=== PATIENT | male | born 1935 | race Caucasian/White ===

== ENCOUNTER 2016-10-21 15:51 | Emergency (ER) | payer MEDICARE, OTHER ==
--- NOTE | 2016-10-21 17:14 | Emergency Department Record ---
History of Present Illness - General Chief Complaint: Numbness Stated Complaint: FACIAL AND HAND NUMBNESS/RESOLVED Time Seen by Provider: 10/21/16 16:08 Source: Patient Mode of Arrival: Ambulatory Limitations: No limitations - History of Present Illness Initial Comments: pt had 20-30min of r face and hand, arm numbness which resolved . Onset/Timin -: Hour(s) Location: Right arm, Right face History of same: No Place: Home Severity: Mild Improves With: None Worsens With: None Context: Sudden onset Associated Symptoms: Other Treatments Prior to Arrival: None - Symptoms of Stroke Symptoms of stroke: Numbness - Related Data Home Medications: Home Medications Medication Instructions Recorded Confirmed Last Taken Aspirin [Adult Low Dose Aspirin EC] 81 mg PO DAILY 01/08/16 10/21/16 Unknown B Complex with Vitamin C 1 each PO DAILY 01/08/16 10/21/16 Unknown [B-Complex with C] Cholecalciferol (Vitamin D3) 5,000 unit PO DAILY 01/08/16 10/21/16 Unknown [Vitamin D3] Glucosamine/D3/Boswellia Keila 1 each PO DAILY 01/08/16 10/21/16 Unknown [Glucosamine Daily Complex Tab] Metoprolol Succinate [Toprol Xl] 12.5 mg PO DAILY 01/08/16 10/21/16 Unknown Niacin 500 mg PO DAILY 01/08/16 10/21/16 Unknown Valerian Root 100 mg PO QID 01/08/16 10/21/16 Unknown Saw [place] 450 mg PO DAILY 10/21/16 10/21/16 Unknown Allergies/Adverse Reactions: Allergies Allergy/AdvReac Type Severity Reaction Status Date / Time No Known Drug Allergies Allergy Verified 10/03/15 13:44 Travel Screening - Travel/Exposure Within Last 30 Days Have you traveled within the last 30 days?: No Review of Systems Reviewed: No additional complaints except as noted below Constitutional: Reports: As per HPI. Denies: Chills, Fever, Malaise, Night sweats, Weakness, Weight change Eyes: Reports: As per HPI. Denies: Eye discharge, Eye pain, Photophobia, Vision change ENT: Reports: As per HPI. Denies: Congestion, Dental pain, Ear pain, Epistaxis , Hearing loss, Throat pain Respiratory: Reports: As per HPI. Denies: Cough, Dyspnea, Hemoptysis, Stridor, Wheezes Cardiovascular: Reports: As per HPI. Denies: Arrhythmia, Chest pain, Dyspnea on exertion, Edema, Murmurs, Orthopnea, Palpitations, Paroxysmal nocturnal dyspnea, Rheumatic Fever, Syncope Endocrine: Reports: As per HPI. Denies: Fatigue, Heat or cold intolerance, Polydipsia, Polyuria Gastrointestinal: Reports: As per HPI. Denies: Abdominal pain, Constipation, Diarrhea, Hematemesis, Hematochezia, Melena, Nausea, Vomiting Genitourinary: Reports: As per HPI. Denies: Dysuria, Frequency, Hematuria, Incontinence, Retention, Testicular pain, Testicular mass, Urgency Musculoskeletal: Reports: As per HPI. Denies: Arthralgia, Back pain, Gout, Joint swelling, Myalgia, Neck pain Skin: Reports: As per HPI. Denies: Bruising, Change in color, Change in hair/ nails, Lesions, Pruritus, Rash Neurological: Reports: As per HPI. Denies: Abnormal gait, Confusion, Headache, Numbness, Paresthesias, Seizure, Tingling, Tremors, Vertigo, Weakness Psychiatric: Reports: As per HPI. Denies: Anxiety, Auditory hallucinations, Depression, Homicidal thoughts, Suicidal thoughts, Visual hallucinations Hematological/Lymphatic: Reports: As per HPI. Denies: Anemia, Blood Clots, Easy bleeding, Easy bruising, Swollen glands Past Medical History - SOCIAL HISTORY Smoking Status: Former smoker Alcohol Use: None Drug Use: None - RESPIRATORY Hx Respiratory Disorders: Yes Hx COPD: Yes - CARDIOVASCULAR Hx Cardio Disorders: No - NEURO Hx Neuro Disorders: No - GI Hx GI Disorders: Yes Hx Ulcer: Yes - Hx Genitourinary Disorders: No - ENDOCRINE Hx Endocrine Disorders: No - MUSCULOSKELETAL Hx Musculoskeletal Disorders: No - PSYCH Hx Psych Problems: No - HEMATOLOGY/ONCOLOGY Hx Hematology/Oncology Disorders: No Family Medical History Any Significant Family History?: Yes Hx Heart Disease: Father, Children, Brother/Sister Physical Exam - General General Appearance: Alert, Oriented x3, Cooperative, Mild distress - Head Head exam: Normal inspection - Eye Eye exam: Normal appearance, PERRL, EOMI Pupils: Normal accommodation - ENT ENT exam: Normal exam, Mucous membranes moist, Normal external ear exam, Normal orophraynx Ear exam: Normal external inspection. negative: External canal tenderness Nasal Exam: Normal inspection. negative: Discharge, Sinus tenderness Mouth exam: Normal external inspection, Tongue normal Teeth exam: Normal inspection. negative: Dental caries Throat exam: Normal inspection. negative: Tonsillar erythema, Tonsillar exudate - Neck Neck exam: Normal inspection, Full ROM. negative: Tenderness - Respiratory Respiratory exam: Normal lung sounds bilaterally. negative: Respiratory distress - Cardiovascular Cardiovascular Exam: Regular rate, Normal rhythm, Normal heart sounds - GI/Abdominal GI/Abdominal exam: Soft, Normal bowel sounds. negative: Tenderness - Rectal Rectal exam: Deferred - exam: Deferred - Extremities Extremities exam: Normal inspection, Full ROM, Normal capillary refill. negative: Tenderness - Back Back exam: Reports: Normal inspection, Full ROM. Denies: Muscle spasm, Rash noted, Tenderness - Neurological Neurological exam: Alert, CN II-XII intact, Normal gait, Oriented X3 - Psychiatric Psychiatric exam: Normal affect, Normal mood - Skin Skin exam: Dry, Intact, Normal color, Warm Course Vital Signs 10/21/16 15:58 Temperature 97.7 F Pulse Rate 64 Respiratory 20 Rate Blood Pressure 186/74 Pulse Ox 96 Medical Decision Making - Lab Data Result diagrams: 10/21/16 17:20 10/21/16 17:20 Disposition Disposition: Transfer Clinical Impression: TIA (transient ischemic attack) Qualifiers: Transient cerebral ischemia type: unspecified Qualified Code(s): G45.9 - Transient cerebral ischemic attack, unspecified Disposition: Acute Care Hospital Transfer Transfer To: [facility] Reason For Transfer: tia Accepting Physician: socrates Rodriguez Discussed w/Accepting Physician: 18:39 Forms: Patient Portal Access
[2016-10-21 17:30] LABS: BASO % 0.3 % (0-6); EOS % 3.4 % (0-6); GRAN % 73.9 % (47-80); HEMATOCRIT 47.4 % (42.0-52.0); HEMOGLOBIN 15.9 gm/dl (14.0-18.0); MEAN CELL VOLUME 88.1 fl (81-97); MEAN CORPUSCULAR HEMOGLOBIN 29.6 pg (27-33); MEAN CORPUSCULAR HGB CONC 33.5 g/dl (32-36); MEAN PLATELET VOLUME 9.4 fl (7.4-10.4); MONO % 9.4 % (0-9); PLATELET COUNT 265 K/uL (130-400); RED BLOOD COUNT 5.38 M/uL (4.40-5.70); RED CELL DISTRIBUTION WIDTH 13.8 % (11.5-14.5)
[2016-10-21 17:40] LABS: ANION GAP 7.5 (7-16); BLOOD UREA NITROGEN 20 mg/dL (9-20); CARBON DIOXIDE 27.5 mmol/L (22-30); CREATININE 1.1 mg/dL (0.66-1.25); EST GLOMERULAR FILTRATION RATE > 60 ml/min; GLUCOSE,RANDOM 107 mg/dL (70-110)
[2016-10-21] MEDS ORDERED: ASPIRIN 325 MG TABLET PO ONE (18:36)
[2016-10-21] MEDS ORDERED: 0.9 % SODIUM CHLORIDE 1000ML 1,000 ML IV PRN (18:39)
[2016-10-21] MEDS ORDERED: ASPIRIN 81 MG CHEWABLE TABLET PO ONE (18:40)
== END 2016-10-21 19:06 | disposition short-term general hospital (02) ==
LOC: ER 15:51
DX: G45.9 Transient cerebral ischemic attack, unspecified (principal); J44.9 Chronic obstructive pulmonary disease, unspecified; Z87.891 Personal history of nicotine dependence
CPT/HCPCS: 70450; 80048; 85025; 93005; 93010; 99285

== ENCOUNTER 2016-10-28 14:14 | Emergency (ER) | payer MEDICARE, OTHER ==
--- NOTE | 2016-10-28 15:00 | Emergency Department Record ---
History of Present Illness - General Chief Complaint: Hypertension Stated Complaint: ELEVATED BP/ HX STROKE Time Seen by Provider: 10/28/16 14:51 Source: Patient Mode of Arrival: Ambulatory Limitations: No limitations - History of Present Illness Initial Comments: 81 yo male presents to ED with a CC of elevated blood pressure this afternoon at home. Patient denies any symptoms and reports that he feels at his baseline. Patient and his were concerned as the patient was diagnosed with a CVA 1 week ago and found to have significant carotid stenosis that will require endarectomy in the next 1-2 weeks. Patient chest pain, dizziness, headache, or focal weakness symptoms. Patient took metoprolol prior to arrival. Patient is also taking Plavix and aspirin at home as well. MD Complaint: Other Onset/Timin -: Days(s) Timing: Gradual onset Description: Other History of Same: Yes History of Trauma: No Severity: Mild Improves With: Nothing, Medication Worsens With: Nothing - Loren Coma Scale Eye Response: (4) Open spontaneously Motor Response: (6) Obeys commands Verbal Response: (5) Oriented [place] Total: 15 - Symptoms of Stroke Baseline State: Baseline State - Related Data Home Medications Medication Instructions Recorded Confirmed Last Taken Aspirin [Adult Low Dose Aspirin EC] 81 mg PO DAILY 01/08/16 10/28/16 1 Day Ago ~10/27/16 Metoprolol Succinate [Toprol Xl] 25 mg PO DAILY 01/08/16 10/28/16 1 Day Ago ~10/27/16 Allergies Allergy/AdvReac Type Severity Reaction Status Date / Time No Known Drug Allergies Allergy Verified 10/28/16 14:47 Travel Screening - Travel/Exposure Within Last 30 Days Have you traveled within the last 30 days?: No - Travel/Exposure Within Last Year Have you traveled outside the [place] in the last year?: No - Additonal Travel Details Have you been exposed to anyone with a communicable illness?: No - Travel Symptoms Symptom Screening: None Review of Systems Constitutional: Denies: Chills, Fever, Malaise, Night sweats Eyes: Denies: Eye discharge, Eye pain ENT: Denies: Congestion, Ear pain, Epistaxis Respiratory: Denies: Cough, Dyspnea Cardiovascular: Denies: Chest pain, Dyspnea on exertion Endocrine: Denies: Fatigue, Heat or cold intolerance Gastrointestinal: Denies: Abdominal pain, Nausea, Vomiting Genitourinary: Denies: Incontinence, Retention Musculoskeletal: Denies: Arthralgia, Back pain, Gout, Joint swelling Skin: Denies: Bruising, Change in color Neurological: Denies: Abnormal gait, Confusion, Headache, Seizure Psychiatric: Denies: Anxiety Hematological/Lymphatic: Denies: Anemia, Blood Clots Past Medical History - SOCIAL HISTORY Smoking Status: Former smoker Alcohol Use: None Drug Use: None - RESPIRATORY Hx Respiratory Disorders: Yes Hx COPD: Yes - CARDIOVASCULAR Hx Cardio Disorders: No - NEURO Hx CVA: Yes Hx TIA: Yes - GI Hx GI Disorders: Yes Hx Ulcer: Yes - Hx Genitourinary Disorders: No - ENDOCRINE Hx Endocrine Disorders: No - MUSCULOSKELETAL Hx Musculoskeletal Disorders: No - PSYCH Hx Psych Problems: No - HEMATOLOGY/ONCOLOGY Hx Hematology/Oncology Disorders: No Family Medical History Any Significant Family History?: Yes Hx Heart Disease: Father, Children, Brother/Sister Physical Exam - General General Appearance: Alert, Oriented x3, Cooperative, No acute distress Limitations: No limitations - Head Head exam: Atraumatic, Normocephalic, Normal inspection Head exam detail: negative: Abrasion, Contusion, Mcqueen's sign, General tenderness, Hematoma, Laceration - Eye Eye exam: Normal appearance. negative: Conjunctival injection, Periorbital swelling, Periorbital tenderness, Scleral icterus - ENT Ear exam: negative: Auricular hematoma, Auricular trauma Nasal Exam: negative: Active bleeding, Discharge, Dried blood, Foreign body Mouth exam: negative: Drooling, Laceration, Muffled voice, Tongue elevation - Neck Neck exam: Normal inspection. negative: Meningismus, Tenderness - Respiratory Respiratory exam: Normal lung sounds bilaterally. negative: Rales, Respiratory distress, Rhonchi, Stridor, Wheezes - Cardiovascular Cardiovascular Exam: Regular rate, Normal rhythm, Normal heart sounds - GI/Abdominal GI/Abdominal exam: Soft. negative: Rebound, Rigid, Tenderness - Rectal Rectal exam: Deferred - exam: Deferred - Extremities Extremities exam: Normal inspection. negative: Calf tenderness, Pedal edema, Tenderness - Back Back exam: Denies: CVA tenderness (R), CVA tenderness (L) - Neurological Neurological exam: Alert, Normal gait, Oriented X3 - Psychiatric Psychiatric exam: Normal affect, Normal mood - Skin Skin exam: Normal color. negative: Abrasion Type of lesion: negative: abrasion Course Vital Signs 10/28/16 14:35 Temperature 97.4 F L Pulse Rate 54 L Respiratory 24 Rate Blood Pressure 169/95 Pulse Ox 98 - Reevaluation(s) Reevaluation #1: 10/28/16 15:05 Patient seen and examined, initial BP 169/95 without symptoms, no emergent need for BP lowering as the patient is asymptomatic. Will monitor in ED and check the patient's renal function. Reevaluation #2: 10/28/16 16:07 Laboratory studies reviewed and are grossly unremarkable for an acute process. repeat blood pressure 145/87, patient remains asymptomatic. Patient and his were updated on all results, and appears stable for discharge at this time. Medical Decision Making - Lab Data Result diagrams: 10/28/16 15:10 10/28/16 15:10 Disposition Disposition: Discharge Clinical Impression: Elevated blood pressure reading Disposition: Home, Self-Care Condition: (2) Stable Instructions: Hypertension (ED) Additional Instructions: Return to ED if your symptoms worsen or if you have any concerns. Follow-up with your family doctor in 3-5 days as directed. Forms: Patient Portal Access Time of Disposition: 16:08
[2016-10-28 15:24] LABS: BASO % 0.4 % (0-6); GRAN % 74.7 % (47-80); HEMATOCRIT 47.7 % (42.0-52.0); LYMPH % 10.2 % (16-45); MEAN CELL VOLUME 88.7 fl (81-97); MEAN CORPUSCULAR HEMOGLOBIN 29.7 pg (27-33); MEAN CORPUSCULAR HGB CONC 33.5 g/dl (32-36); MEAN PLATELET VOLUME 9.6 fl (7.4-10.4); MONO % 8.7 % (0-9); PLATELET COUNT 272 K/uL (130-400); RED BLOOD COUNT 5.38 M/uL (4.40-5.70); RED CELL DISTRIBUTION WIDTH 13.9 % (11.5-14.5); WHITE BLOOD COUNT W/O DIFF 12.1 K/uL (4.2-12.2)
[2016-10-28 15:37] LABS: ALB/GLOB RATIO 1.4 (1.1-1.8); ALBUMIN 4.4 gm/dL (3.5-5.0); ALKALINE PHOSPHATASE 100 U/L (38-126); ALT/SGPT 40 U/L (21-72); ANION GAP 12.6 (7-16); AST/SGOT 27 U/L (17-59); BILIRUBIN,TOTAL 0.56 mg/dL (0.2-1.3); BLOOD UREA NITROGEN 20 mg/dL (9-20); CARBON DIOXIDE 21.4 mmol/L (22-30); EST GLOMERULAR FILTRATION RATE > 60 ml/min; GLUCOSE,RANDOM 101 mg/dL (70-110); TOTAL PROTEIN 7.5 gm/dL (6.3-8.2)
== END 2016-10-28 16:23 | disposition home or self-care (01) ==
LOC: ER 14:14
DX: I10 Essential (primary) hypertension (principal); Z87.891 Personal history of nicotine dependence; Z86.73 Personal history of transient ischemic attack (TIA), and cerebral infarction without residual deficits; J44.9 Chronic obstructive pulmonary disease, unspecified
CPT/HCPCS: 80053; 85025; 99283

== ENCOUNTER 2016-11-12 09:56 | Emergency (ER) | payer MEDICARE, OTHER ==
--- NOTE | 2016-11-12 10:17 | Emergency Department Record ---
History of Present Illness - General Chief Complaint: Slurred speech Stated Complaint: SLURED SPEECH Time Seen by Provider: 11/12/16 10:10 Source: Patient, RN notes reviewed Mode of Arrival: Ambulatory - History of Present Illness Initial Comments: one hour prior to admission he had speech problems where he could not find the right word and said he has had that problem before. Recent CVA about 2 weeks ago and he was scheduled for an endarectomy yesterday but was delayed for one week. patient has carotid stenosis left side per . Onset/Timin -: Minutes(s) Location: Other History of same: Yes Place: Home Severity: Mild Associated Symptoms: Denies other symptoms - Loren Coma Scale Eye Response: (4) Open spontaneously Motor Response: (6) Obeys commands Verbal Response: (5) Oriented [place] Total: 15 - Symptoms of Stroke Onset of Symptoms Date: 11/12/16 Onset of Symptoms Time: 09:00 Symptom Onset Unknown: Yes Symptoms of stroke: Incoherent Speech - Related Data Home Medications: Home Medications Medication Instructions Recorded Confirmed Last Taken Aspirin [Adult Low Dose Aspirin EC] 81 mg PO DAILY 01/08/16 11/12/16 11/11/16 09 :00 Metoprolol Succinate [Toprol Xl] 25 mg PO DAILY 01/08/16 11/12/16 11/11/16 09:00 Atorvastatin Calcium 40 mg PO 11/12/16 11/11/16 21:00 Allergies/Adverse Reactions: Allergies Allergy/AdvReac Type Severity Reaction Status Date / Time No Known Drug Allergies Allergy Verified 11/12/16 09:58 Travel Screening - Travel/Exposure Within Last 30 Days Have you traveled within the last 30 days?: No - Travel/Exposure Within Last Year Have you traveled outside the [place] in the last year?: No - Additonal Travel Details Have you been exposed to anyone with a communicable illness?: No - Travel Symptoms Symptom Screening: None Review of Systems Reviewed: No additional complaints except as noted below Constitutional: Reports: As per HPI. Denies: Chills, Fever, Malaise, Night sweats, Weakness, Weight change Eyes: Reports: As per HPI. Denies: Eye discharge, Eye pain, Photophobia, Vision change ENT: Reports: As per HPI. Denies: Congestion, Dental pain, Ear pain, Epistaxis , Hearing loss, Throat pain Respiratory: Reports: As per HPI. Denies: Cough, Dyspnea, Hemoptysis, Stridor, Wheezes Cardiovascular: Reports: As per HPI. Denies: Arrhythmia, Chest pain, Dyspnea on exertion, Edema, Murmurs, Orthopnea, Palpitations, Paroxysmal nocturnal dyspnea, Rheumatic Fever, Syncope Endocrine: Reports: As per HPI. Denies: Fatigue, Heat or cold intolerance, Polydipsia, Polyuria Gastrointestinal: Reports: As per HPI. Denies: Abdominal pain, Constipation, Diarrhea, Hematemesis, Hematochezia, Melena, Nausea, Vomiting Genitourinary: Reports: As per HPI. Denies: Dysuria, Frequency, Hematuria, Incontinence, Retention, Testicular pain, Testicular mass, Urgency Musculoskeletal: Reports: As per HPI. Denies: Arthralgia, Back pain, Gout, Joint swelling, Myalgia, Neck pain Skin: Reports: As per HPI. Denies: Bruising, Change in color, Change in hair/ nails, Lesions, Pruritus, Rash Neurological: Reports: As per HPI. Denies: Abnormal gait, Confusion, Headache, Numbness, Paresthesias, Seizure, Tingling, Tremors, Vertigo, Weakness Psychiatric: Reports: As per HPI. Denies: Anxiety, Auditory hallucinations, Depression, Homicidal thoughts, Suicidal thoughts, Visual hallucinations Hematological/Lymphatic: Reports: As per HPI. Denies: Anemia, Blood Clots, Easy bleeding, Easy bruising, Swollen glands Past Medical History - SOCIAL HISTORY Smoking Status: Former smoker Alcohol Use: None Drug Use: None - RESPIRATORY Hx Respiratory Disorders: Yes Hx COPD: Yes - CARDIOVASCULAR Hx Cardio Disorders: No - NEURO Hx Neuro Disorders: No Hx CVA: Yes Hx TIA: Yes - GI Hx GI Disorders: Yes Hx Ulcer: Yes - Hx Genitourinary Disorders: No - ENDOCRINE Hx Endocrine Disorders: No - MUSCULOSKELETAL Hx Musculoskeletal Disorders: No - PSYCH Hx Psych Problems: No - HEMATOLOGY/ONCOLOGY Hx Hematology/Oncology Disorders: No Family Medical History Any Significant Family History?: Yes Hx Heart Disease: Father, Children, Brother/Sister Hx Stroke: Father, Brother/Sister Physical Exam - General General Appearance: Alert, Oriented x3, Cooperative, Mild distress - Head Head exam: Normal inspection - Eye Eye exam: Normal appearance, PERRL Pupils: Normal accommodation - ENT ENT exam: Normal exam, Mucous membranes moist, Normal external ear exam, Normal orophraynx, TM's normal bilaterally Ear exam: Normal external inspection. negative: External canal tenderness Nasal Exam: Normal inspection. negative: Discharge, Sinus tenderness Mouth exam: Normal external inspection, Tongue normal Teeth exam: Normal inspection. negative: Dental caries Throat exam: Normal inspection. negative: Tonsillar erythema, Tonsillar exudate - Neck Neck exam: Normal inspection, Full ROM. negative: Tenderness - Respiratory Respiratory exam: Normal lung sounds bilaterally. negative: Respiratory distress - Cardiovascular Cardiovascular Exam: Regular rate, Normal rhythm, Normal heart sounds - GI/Abdominal GI/Abdominal exam: Soft, Normal bowel sounds. negative: Tenderness - Rectal Rectal exam: Deferred - exam: Deferred - Extremities Extremities exam: Normal inspection, Full ROM, Normal capillary refill. negative: Tenderness - Back Back exam: Reports: Normal inspection, Full ROM. Denies: Muscle spasm, Rash noted, Tenderness - Neurological Neurological exam: Alert, Normal gait, Oriented X3, Reflexes normal - Psychiatric Psychiatric exam: Normal affect, Normal mood - Skin Skin exam: Dry, Intact, Normal color, Warm Course Vital Signs 11/12/16 10:04 Temperature 97.4 F L Pulse Rate 63 Respiratory 20 Rate Blood Pressure 169/96 Pulse Ox 98 currently speaking appropriately and moving arms and legs well. Medical Decision Making - Data Complexity MDM Data: Labs Ordered and/or Reviewed, X-Ray Ordered and/or Reviewed (CT head unchanged from september) - Lab Data Result diagrams: 11/12/16 10:05 11/12/16 10:05 Disposition Clinical Impression: TIA (transient ischemic attack) Qualifiers: Transient cerebral ischemia type: unspecified Qualified Code(s): G45.9 - Transient cerebral ischemic attack, unspecified Disposition: Home, Self-Care Condition: (1) Good Instructions: Transient Ischemic Attack, Employee Relations Director (GEN) Additional Instructions: full strenght aspirin a day follow up with Dr. Colindres tomorrow at 11pm in the office Forms: Patient Portal Access Time of Disposition: 11:35
[2016-11-12] MEDS ORDERED: ASPIRIN 81 MG CHEWABLE TABLET PO ONE (10:25)
[2016-11-12 10:30] LABS: BASO % 0.5 % (0-6); EOS % 8.8 % (0-6); GRAN % 64.1 % (47-80); HEMATOCRIT 49.2 % (42.0-52.0); HEMOGLOBIN 16.2 gm/dl (14.0-18.0); LYMPH % 16.5 % (16-45); MEAN CELL VOLUME 88.5 fl (81-97); MEAN CORPUSCULAR HEMOGLOBIN 29.1 pg (27-33); MEAN CORPUSCULAR HGB CONC 32.9 g/dl (32-36); MEAN PLATELET VOLUME 9.7 fl (7.4-10.4); MONO % 10.1 % (0-9); PLATELET COUNT 300 K/uL (130-400); RED BLOOD COUNT 5.56 M/uL (4.40-5.70); RED CELL DISTRIBUTION WIDTH 13.7 % (11.5-14.5); WHITE BLOOD COUNT W/O DIFF 10.4 K/uL (4.2-12.2)
[2016-11-12] MEDS ORDERED: METOPROLOL SUCC 25 MG TAB.ER PO SCH (10:30)
[2016-11-12 10:38] LABS: INR 0.94; PROTHROMBIN TIME (PATIENT) 10.6 SECONDS (9.5-12.1)
[2016-11-12 10:44] LABS: ANION GAP 5.3 (7-16); BLOOD UREA NITROGEN 22 mg/dL (9-20); CARBON DIOXIDE 25.7 mmol/L (22-30); CREATININE 1.1 mg/dL (0.66-1.25); EST GLOMERULAR FILTRATION RATE > 60 ml/min; GLUCOSE,RANDOM 101 mg/dL (70-110)
[2016-11-12] MEDS ORDERED: METOPROLOL SUCC 50 MG TABLET PO SCH (11:15)
== END 2016-11-12 12:57 | disposition home or self-care (01) ==
LOC: ER 09:56
DX: G45.9 Transient cerebral ischemic attack, unspecified (principal); J44.9 Chronic obstructive pulmonary disease, unspecified; Z86.73 Personal history of transient ischemic attack (TIA), and cerebral infarction without residual deficits; Z87.891 Personal history of nicotine dependence
CPT/HCPCS: 70450; 80048; 85025; 85610; 99284

== ENCOUNTER 2016-11-21 09:06 | Emergency (ER) | payer MEDICARE, OTHER ==
[2016-11-21 09:48] LABS: URINE APPEARANCE CLEAR; URINE BILIRUBIN NEGATIVE (NEGATIVE); URINE BLOOD SMALL (NEGATIVE); URINE COLOR YELLOW; URINE GLUCOSE (UA) NEGATIVE (NEGATIVE); URINE KETONE NEGATIVE (NEGATIVE); URINE LEUKOCYTE ESTERASE SMALL (NEGATIVE); URINE NITRITE NEGATIVE (NEGATIVE); URINE PROTEIN TRACE (NEGATIVE); URINE UROBILINOGEN 0.2 E.U./dL (0.20 - 1.00)
[2016-11-21 09:57] LABS: URINE EPITHELIAL CELLS 0 - 2 (FEW)
[2016-11-21 09:58] LABS: URINE BACTERIA FEW
--- NOTE | 2016-11-21 10:04 | Emergency Department Record ---
History of Present Illness - General Chief complaint: Male Urogenital Problem Stated complaint: UTI Time Seen by Provider: 11/21/16 09:22 Source: Patient Mode of Arrival: Ambulatory Limitations: No limitations - History of Present Illness Initial comments: 81 yo male presents with concern about a possible urinary tract infection. The patient had carotid surgery on Monday. He had a mckeon catheter at that time. He is now having burning with urination. No retention or incontinence. No fevers or chills. No blood. He is circumcised. No flank pain. MD Complaint: Dysuria -: Days(s) (1) Location: Penis Radiation: None Severity: Moderate Quality: Aching Consistency: Intermittent Improves with: None Worsens with: Urination, Other Indwelling catheter (on monday) Reports: Dysuria - Related Data Home Medications Medication Instructions Recorded Confirmed Last Taken Aspirin [Adult Low Dose Aspirin EC] 81 mg PO DAILY 01/08/16 11/21/16 1 Day Ago ~11/20/16 Metoprolol Succinate [Toprol Xl] 25 mg PO DAILY 01/08/16 11/21/16 1 Day Ago ~11/20/16 Atorvastatin Calcium 40 mg PO DAILY 11/12/16 11/21/16 1 Day Ago ~11/20/16 Previous Rx's Medication Instructions Recorded Ciprofloxacin HCl [Cipro] 500 mg PO Q12H #14 tablet 11/21/16 Allergies Allergy/AdvReac Type Severity Reaction Status Date / Time No Known Drug Allergies Allergy Verified 11/21/16 10:10 Review of Systems Constitutional: Denies: Chills, Fever, Malaise, Weakness Eyes: Denies: Eye discharge, Eye pain, Photophobia ENT: Denies: Congestion, Ear pain, Throat pain Respiratory: Denies: Cough, Dyspnea, Hemoptysis, Stridor, Wheezes Cardiovascular: Denies: Chest pain, Palpitations, Syncope Endocrine: Denies: Fatigue Gastrointestinal: Denies: Abdominal pain, Diarrhea, Nausea, Vomiting Genitourinary: Reports: Dysuria, Frequency. Denies: Discharge, Hematuria, Incontinence, Retention, Testicular pain, Urgency Musculoskeletal: Denies: Arthralgia, Back pain, Myalgia Skin: Denies: Bruising, Change in color, Rash Neurological: Reports: Weakness (recent CVA treated at [facility]). Denies: Confusion, Headache Psychiatric: Denies: Anxiety Hematological/Lymphatic: Denies: Blood Clots, Easy bleeding, Easy bruising, Swollen glands Past Medical History - SOCIAL HISTORY Smoking Status: Former smoker Drug Use: None - RESPIRATORY Hx Respiratory Disorders: Yes Hx COPD: Yes - CARDIOVASCULAR Hx Cardio Disorders: No - NEURO Hx Neuro Disorders: No Hx CVA: Yes Hx TIA: Yes - GI Hx GI Disorders: Yes Hx Ulcer: Yes - Hx Genitourinary Disorders: No - ENDOCRINE Hx Endocrine Disorders: No - MUSCULOSKELETAL Hx Musculoskeletal Disorders: No - PSYCH Hx Psych Problems: No - HEMATOLOGY/ONCOLOGY Hx Hematology/Oncology Disorders: No Family Medical History Hx Heart Disease: Father, Children, Brother/Sister Hx Stroke: Father, Brother/Sister Physical Exam - General General Appearance: Alert, Oriented x3, Cooperative - Head Head exam: Atraumatic, Normal inspection - Eye Eye exam: Normal appearance - ENT ENT exam: Normal exam Ear exam: Normal external inspection Nasal Exam: Normal inspection Mouth exam: Normal external inspection - Neck Neck exam: negative: Normal inspection (healing incision site from the CEA, mild bruising, mild swelling, appears appropriate at this point) - Respiratory Respiratory exam: Normal lung sounds bilaterally. negative: Respiratory distress - Cardiovascular Cardiovascular Exam: Regular rate, Normal rhythm, Normal heart sounds - GI/Abdominal GI/Abdominal exam: Soft. negative: Distended, Tenderness - Rectal Rectal exam: Deferred - Extremities Extremities exam: Normal inspection - Back Back exam: Reports: Normal inspection, Full ROM. Denies: CVA tenderness (R), CVA tenderness (L), Paraspinal tenderness - Neurological Neurological exam: Alert, Oriented X3 - Psychiatric Psychiatric exam: Normal affect, Normal mood. negative: Agitated, Anxious - Skin Skin exam: Dry, Intact, Normal color, Warm Course - Reevaluation(s) Reevaluation #1: 11/21/16 09:59 UA demonstrates 3-5WBC, LE pos, with a few bacterial. His urine will be sent for a culture. Reevaluation #2: Well appearing male No fevers 11/21/16 10:12 Medical Decision Making - Lab Data Lab Results 11/21/16 Range/Units 09:22 Urine Color Yellow Urine Appearance Clear Urine pH 7.0 (5.0-8.0) Ur Specific [place] 1.010 (1.002-1.030) Urine Protein Trace H (NEGATIVE) Urine Glucose (UA) Negative (NEGATIVE) Urine Ketones Negative (NEGATIVE) Urine Blood Small H (NEGATIVE) Urine Nitrite Negative (NEGATIVE) Urine Bilirubin Negative (NEGATIVE) Urine Urobilinogen 0.2 (0.20 - 1.00) E.U./dL Ur Leukocyte Esterase Small H (NEGATIVE) Urine RBC 3 - 6 (NONE SEEN) Urine WBC 3 - 5 (0-2/hpf) Ur Epithelial Cells 0 - 2 (FEW) Urine Bacteria Few Disposition Disposition: Discharge Clinical Impression: Urinary tract infection Qualifiers: Urinary tract infection type: site unspecified Hematuria presence: without hematuria Qualified Code(s): N39.0 - Urinary tract infection, site not specified Disposition: Home, Self-Care Condition: (1) Good Instructions: Urinary Tract Infection in Men (ED) Additional Instructions: You have a culture of your urine that will be available in about 3 days Call your doctor for close follow up of you symptoms Return if you have fever, nausea, vomiting or any new concerns Prescriptions: Ciprofloxacin HCl [Cipro] 500 mg PO Q12H #14 tablet Forms: Patient Portal Access Time of Disposition: 10:13
[2016-11-21] MEDS ORDERED: CIPROFLOXACIN HCL 500 MG TABLET PO ONE (10:12)
== END 2016-11-21 10:28 | disposition home or self-care (01) ==
LOC: ER 09:06
DX: N39.0 Urinary tract infection, site not specified (principal)
CPT/HCPCS: 81001; 99282

== ENCOUNTER 2017-09-05 18:12 | Emergency (ER) | payer MEDICARE, OTHER ==
--- NOTE | 2017-09-05 18:36 | Emergency Department Record ---
History of Present Illness - General Chief Complaint: Fall Injury Stated Complaint: HEAD LAC Time Seen by Provider: 09/05/17 18:30 Source: Patient Mode of Arrival: Ambulatory Limitations: No limitations - History of Present Illness Initial Comments: 82 yo male presents to ED for evaluation of an injury to the head following a [id number] while exiting a restaurant this evening. Patient reports falling forward and striking his head on the pavement, denies LOC or neck pain symptoms. Patient denies focal weakness, slurred speech, or vertigo symptoms. Patient denies the use of anticoagulation medications as well. Patient does report injury to the shaq-orbital region following his fall. MD Complaint: Fall Onset/Timin -: Minutes(s) Fall From: Standing When Fall Occurred: Just prior to arrival Fall Witnessed: Yes, by family Place Fall Occurred: Street Loss of Consciousness: None Prolonged Down Time?: No Symptoms Prior to Fall: None Location: Head, Face Context: Tripped/slipped Associated Symptoms: Denies, Confusion, Headache, Neck pain, Numbness, Weakness - Loren Coma Scale Eye Response: (4) Open spontaneously Motor Response: (6) Obeys commands Verbal Response: (5) Oriented Loren Total: 15 - Related Data Home Medications Medication Instructions Recorded Confirmed Last Taken Cholecalciferol (Vitamin D3) 5,000 unit PO DAILY 09/05/17 09/05/17 09/05/17 [Vitamin D3] Cinnamon Bark [Cinnamon] 2 tab PO DAILY 09/05/17 09/05/17 09/05/17 Diphenhydramine HCl [Benadryl] 50 mg PO QHS 09/05/17 09/05/17 09/04/17 Melatonin 3 mg PO QHS 09/05/17 09/05/17 09/05/17 Ubidecarenone [Co Q-10] 50 mg PO DAILY 09/05/17 09/05/17 09/05/17 Vitamin B Complex Vit C No.3 [B 1 tab PO DAILY 09/05/17 09/05/17 09/05/17 Complex with Vitamin C] Allergies Allergy/AdvReac Type Severity Reaction Status Date / Time No Known Drug Allergies Allergy Verified 09/05/17 18:22 Review of Systems Constitutional: Denies: Chills, Fever, Malaise, Night sweats Eyes: Denies: Eye discharge, Eye pain ENT: Denies: Congestion, Ear pain, Epistaxis Respiratory: Denies: Cough, Dyspnea Cardiovascular: Denies: Chest pain, Dyspnea on exertion Endocrine: Denies: Fatigue, Heat or cold intolerance Gastrointestinal: Denies: Abdominal pain, Nausea, Vomiting Genitourinary: Denies: Incontinence, Retention Musculoskeletal: Denies: Arthralgia, Back pain, Gout, Joint swelling Skin: Denies: Bruising, Change in color Neurological: Denies: Abnormal gait, Confusion, Headache, Tingling, Tremors, Vertigo Psychiatric: Denies: Anxiety Hematological/Lymphatic: Denies: Anemia, Blood Clots Past Medical History - SOCIAL HISTORY Smoking Status: Former smoker Drug Use: None - RESPIRATORY Hx Respiratory Disorders: Yes Hx COPD: Yes - CARDIOVASCULAR Hx Cardio Disorders: No - NEURO Hx Neuro Disorders: No Hx CVA: Yes Hx TIA: Yes - GI Hx GI Disorders: Yes Hx Ulcer: Yes - Hx Genitourinary Disorders: No - ENDOCRINE Hx Endocrine Disorders: No - MUSCULOSKELETAL Hx Musculoskeletal Disorders: No - PSYCH Hx Psych Problems: No - HEMATOLOGY/ONCOLOGY Hx Hematology/Oncology Disorders: No Family Medical History Hx Heart Disease: Father, Children, Brother/Sister Hx Stroke: Father, Brother/Sister Physical Exam - General General Appearance: Alert, Oriented x3, Cooperative, No acute distress Limitations: No limitations - Head Head exam detail: Abrasion, Laceration, Other (Laceration to the infra-orbital region measuring perhaps 0.5 cm, laceration lateral to the right eyebrow measuring 1.5 cm. bleeding is well controlled.). negative: Contusion, Mcqueen's sign, General tenderness, Hematoma - Eye Eye exam: Normal appearance. negative: Conjunctival injection, Periorbital swelling, Periorbital tenderness, Scleral icterus - ENT Ear exam: negative: Auricular hematoma, Auricular trauma Nasal Exam: negative: Active bleeding, Discharge, Dried blood, Foreign body Mouth exam: negative: Drooling, Laceration, Tongue elevation - Neck Neck exam: Normal inspection. negative: Meningismus, Tenderness - Respiratory Respiratory exam: Normal lung sounds bilaterally. negative: Respiratory distress, Rhonchi, Stridor, Wheezes - Cardiovascular Cardiovascular Exam: Regular rate, Normal rhythm, Normal heart sounds - GI/Abdominal GI/Abdominal exam: Soft. negative: Rebound, Rigid, Tenderness - Rectal Rectal exam: Deferred - exam: Deferred - Extremities Extremities exam: Normal inspection. negative: Calf tenderness, Pedal edema, Tenderness - Back Back exam: Denies: CVA tenderness (R), CVA tenderness (L) - Neurological Neurological exam: Alert, CN II-XII intact, Oriented X3. negative: Motor sensory deficit - Psychiatric Psychiatric exam: Normal affect, Normal mood - Skin Skin exam: Abrasion, Normal color Type of lesion: abrasion Course - Reevaluation(s) Reevaluation #1: 09/05/17 18:55 Procedure Note: 2.0 cm laceration to the right lateral eyebrow region was cleaned and prepped in sterile fashion, no FBs were visualized. Wound was anesthetized with 1% Lidocaine with epinephrine with good anaesthesia. Laceration was then closed using 5-0 Prolene sutures in interrupted fashion (#6 ) to close the wound. Both good hemostasis and cosmesis were achieved following laceration repair. Reevaluation #2: 09/05/17 19:15 EKG: Sinus Bradycardia 46 Normal axis NO acute ST-T wave changes, overall similar in appearance to 10/21/16 except for rate. Reevaluation #3: 09/05/17 19:31 CT Head: No acute process Encephalomalacia Right shaq-orbital STS with ST gas c/w laceration CT Cervical Spine: No acute fracture or dislocation Multi-level DJD No stenosis Left endarectomy changes are present Patient was updated on all results, I did discuss performing basic laboratory studies to exclude ARF resulting in accumulation of his Beta-Hipolito as a cause of his bradycardia, patient declined stating "my heart rate goes up and down". Patient was instructed to follow-up with Dr. Colindres in 3-5 days as directed. Disposition Disposition: Discharge Clinical Impression: Contusion of head Qualifiers: Encounter type: initial encounter Contusion of head detail: periocular area Laterality: right Qualified Code(s): S00.11XA - Contusion of right eyelid and periocular area, initial encounter Facial laceration Qualifiers: Encounter type: initial encounter Qualified Code(s): S01.81XA - Laceration without foreign body of other part of head, initial encounter Disposition: Home, Self-Care Condition: (2) Stable Instructions: Care For Your Stitches (ED), Head Injury (ED) Additional Instructions: Return to ED if your symptoms worsen or if you have any concerns. Stitches out in 7 days as directed. Follow-up with your family doctor in 3-5 days as directed. Forms: Patient Portal Access Time of Disposition: 19:36 Quality - Quality Measures Quality Measures: N/A - Blood Pressure Screening Does Patient Have Any of the Following: Active Dx of HTN Blood Pressure Classification: Hypertensive Reading Systolic Measurement: 171 Diastolic Measurement: 103 Screening for High Blood Pressure: Patient Exclusion, Hx of HTN [[id number]]
--- NOTE | 2017-09-07 09:46 | CT SCAN REPORT ---
EXAM: CT OF THE HEAD WITHOUT CONTRAST HISTORY: TRIPPED AND FELL ON CURB. TRAUMA TO HEAD. LACERATION TO FOREHEAD. ABRASION UNDER RIGHT EYE. TECHNIQUE: Routine noncontrast CT examination of the head was obtained. Comparison: CT of the head without contrast dated 11/12/16. FINDINGS: There is moderate dilatation of the subarachnoid spaces redemonstrated associated with ventriculomegaly consistent with generalized atrophy. There is redemonstration of a wedge shaped area of encephalomalacia in the anterior right frontal region measuring 3.1 x 3.6 cm, not significantly changed. This is likely the result of remote infarct. Moderate periventricular and subcortical white matter lucencies are again noted in each cerebral hemisphere consistent with chronic small vessel ischemia. This pattern does not appear significantly changed. A small old cortical infarct in the superior left cerebellar hemisphere is again questioned. No definite new area of abnormally increased or decreased attenuation is noted throughout the brain substance. No new abnormal extraaxial fluid collection is seen. There is right periorbital soft tissue swelling with subcutaneous emphysema in the superolateral soft tissues suggesting a component of laceration. No skull fracture is seen. The visualized paranasal sinuses and mastoid air cells are clear. The orbits as visualized are unremarkable. IMPRESSION: 1. NO CT EVIDENCE OF ACUTE MAJOR VESSEL INFARCT, INTRACRANIAL HEMORRHAGE, MASS NOR SKULL FRACTURE. 2. GENERALIZED ATROPHY WITH VENTRICULOMEGALY REDEMONSTRATED. 3. WEDGE SHAPED AREA OF ENCEPHALOMALACIA IN THE ANTERIOR RIGHT FRONTAL REGION IS STABLE AND LIKELY RELATES TO OLD INFARCT. 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 4. MODERATE WHITE MATTER LUCENCIES IN EACH CEREBRAL HEMISPHERE CONSISTENT WITH CHRONIC SMALL VESSEL ISCHEMIA. 5. RIGHT PERIORBITAL SOFT TISSUE SWELLING WITH SUBCUTANEOUS EMPHYSEMA. JOB NUMBER: [id number] [facility]
--- NOTE | 2017-09-07 10:03 | CT SCAN REPORT ---
EXAM: CT OF THE CERVICAL SPINE WITHOUT CONTRAST HISTORY: FELL WITH TRAUMA TO ANTERIOR FRONTAL/RIGHT PERIORBITAL REGION. TECHNIQUE: Thin collimation helical CT examination of the cervical spine was performed in the axial plane without intravenous contrast. Coronal and sagittal reformatted images are generated and reviewed. Comparison: Same day noncontrast CT head examination. No prior imaging of the cervical spine available for comparison: FINDINGS: There is mild osteopenia. There is straightening of the normal cervical lordosis likely due to positioning or muscle spasm. The vertebral bodies are otherwise normal in alignment and height. No acute fracture, destructive bone lesion or prevertebral soft tissue swelling. There are advanced hypertrophic degenerative changes of the atlantodental joint. Multilevel degenerative disk/degenerative end plate changes are identified most pronounced at the mid and lower levels where they are moderate in degree. No gross osseous cervical spinal stenosis is demonstrated. Multilevel facet arthropathy is present most pronounced on the left where the majority of changes are advanced. Those on the right are relatively mild. Multilevel neural foraminal narrowing is present secondary to uncovertebral joint and facet joint spurring, again, most pronounced on the left. There is chronic appearing calcific density noted adjacent to the tip of the spinous process of C7. Post endarterectomy changes are suspected on the left. No cervical mass nor adenopathy. IMPRESSION: 1. NO ACUTE FRACTURE, SUBLUXATION, OR PREVERTEBRAL SOFT TISSUE SWELLING. 2. MULTILEVEL DEGENERATIVE CHANGES, DETAILED ABOVE ASSOCIATED WITH STRAIGHTENING OF THE NORMAL CERVICAL LORDOSIS AND MULTILEVEL NEURAL FORAMINAL NARROWING. JOB NUMBER: [id number] [facility]
== END 2017-09-05 19:43 | disposition home or self-care (01) ==
LOC: ER 18:12
DX: S01.111A Laceration without foreign body of right eyelid and periocular area, initial encounter (principal); M47.892 Other spondylosis, cervical region; R00.1 Bradycardia, unspecified; J44.9 Chronic obstructive pulmonary disease, unspecified; W01.198A Fall on same level from slipping, tripping and stumbling with subsequent striking against other object, initial encounter; I10 Essential (primary) hypertension; Z87.891 Personal history of nicotine dependence; Z86.73 Personal history of transient ischemic attack (TIA), and cerebral infarction without residual deficits; Y92.410 Unspecified street and highway as the place of occurrence of the external cause
CPT/HCPCS: 12011; 70450; 72125; 93005; 93010; 99284